=== PATIENT | male | born 1985 | race Caucasian/White ===

== ENCOUNTER 2024-01-17 15:11 | Emergency (ER) | payer MEDICAID, OTHER ==
[~2024-01-17] VITALS: Ht 170.2 cm; Wt 88.5 kg
[2024-01-17 16:05] VITALS: BP 124/77; PULSE 57; RESP 18; TEMP 98.6; O2SAT 95
[2024-01-17] MEDS: KETOROLAC TROMETH 60MG/2ML VIAL IM ONE (16:36)
[2024-01-17] MEDS ORDERED: IBUP-1456 PO (16:44)
== END 2024-01-17 16:50 | disposition home or self-care (01) ==
LOC: ER 15:11
DX: M23.92 Unspecified internal derangement of left knee (principal)
CPT/HCPCS: 73562; 96372; 99283; J1885